=== PATIENT | male | born 1940 | race Caucasian/White ===

== ENCOUNTER → 2016-09-30 | Outpatient (CLI) | payer OTHER, MEDICARE | LOC: MMPC 09:00 | PROVIDERS: ATTEND Family Medicine | DX: K58.2 Mixed irritable bowel syndrome (principal); I10 Essential (primary) hypertension; E11.9 Type 2 diabetes mellitus without complications; E66.01 Morbid (severe) obesity due to excess calories; Z79.01 Long term (current) use of anticoagulants; Z95.1 Presence of aortocoronary bypass graft | CPT/HCPCS: 99214; G0463 ==

== ENCOUNTER → 2016-10-05 | Outpatient (CLI) | payer OTHER, MEDICARE | LOC: MMPC 11:11 | PROVIDERS: ATTEND Surgery | DX: K21.9 Gastro-esophageal reflux disease without esophagitis (principal); R19.4 Change in bowel habit; K92.1 Melena; Z86.010 Personal history of colon polyps; Z79.01 Long term (current) use of anticoagulants | CPT/HCPCS: 99203; G0463 ==

== ENCOUNTER 2016-10-13 07:47 | Day surgery (SDC) | payer OTHER, MEDICARE ==
[~2016-10-13 07:47] MED LIST: LIDOCAINE 2% VISCOUS(20 MG/1 ML) - 15 ML UD CUP PO ONE; fentaNYL Inj 100 MCG/2 ML VIAL ONE
[2016-10-13] MEDS ORDERED: LIDOCAINE W/ SODIUM BICARB 0.5 ML SYR ONE (07:56)
[2016-10-13] MEDS ORDERED: Lactated Ringers 1,000 ML PRIMARY IV ONE (07:56)
[2016-10-13 08:35] VITALS: RESP 16
--- NOTE | 2016-10-13 10:37 | GEN.OPNOTE ---
EGD / Colonoscopy Report Surgery Date: 10/13/16 Preoperative Diagnosis: GERD. Change in bowel habits. Personal history of colon polyps. Melanotic stools. Chronic anticoagulation. Postoperative Diagnosis: Same. Gastritis. Multiple colon polyps. Procedure: #1 esophagogastroduodenoscopy with biopsy. #2 complete colonoscopy with hot snare polypectomy 5. Surgeon: Arnoldo Sifuentes MD Anesthesia Provider: Mert Escobar CRNA Anesthesia Type: MAC Indications: See preoperative diagnosis. EGD Findings: Esophagus: [Normal] GE Junction : [Normal] Fundus : [Normal] Body : [Erythema and inflammation.] Prepyloric : [Streaky erythema.] Small Intestine : [Normal] A lubricated flexible upper endoscope was inserted and passed through the esophagus and stomach into the duodenum. The duodenum and duodenal bulb were unremarkable. The pyloric channel was patent. Both in the antrum and the body of the stomach there is some erythema and friability. Multiple biopsies were taken. Hemostasis was assured. The scope was withdrawn into the distal esophagus. There is minimal inflammation at the Z line. Biopsies were taken at and above the Z line. Hemostasis was assured. The scope was withdrawn through the remainder of a normal-appearing esophagus and brought through the hypopharynx under suction completing the procedure. Colonoscopy Findings: Prep : [Very good] Cecum : [Adenomatous polyp hot snare polypectomy performed] Ascending : [2 polyps. Hot snare polypectomy performed] Transverse : [Normal] Sigmoid : [Polyp. Hot snare polypectomy performed] Rectum : [Polyp. Hot snare polypectomy performed] Digital Rectal Exam : [No significant perianal pathology. Prostate of normal size and consistency for age. No nodules.] A lubricated flexible colonoscope was inserted and passed to the blind end of the cecum. There was a polyp in the cecum which was removed with a hot snare. There were 2 further polyps in the right colon which were removed with a hot snare. Base of all polyps was cauterized. Hemostasis was assured. One of the right colon polyps had a little arterial pumper at the base which was treated with further coagulation. The hepatic flexure, transverse colon, and splenic flexure as well as the descending colon were unremarkable. There was a polyp at 30 cm. Hot snare polypectomy was performed. The base was cauterized. There was another small polyp at 15 cm in the high rectum. Hot snare polypectomy was performed. The base was cauterized. The scope was withdrawn completing the procedure. Patient tolerated all aspects of the procedure well without complication. He was taken to outpatient surgery in stable condition. Follow-up will be with my office on an as-needed basis. We will call the biopsy results when available. I would recommend follow-up colonoscopy in 2 years time.
[2016-10-13 11:14] VITALS: TEMP 97.1
== END 2016-10-13 11:00 | disposition home or self-care (01) ==
LOC: SDSC 07:47
PROVIDERS: ATTEND Surgery
DX: K21.9 Gastro-esophageal reflux disease without esophagitis (principal); R19.4 Change in bowel habit; Z86.010 Personal history of colon polyps; K92.1 Melena; Z79.01 Long term (current) use of anticoagulants; K63.5 Polyp of colon
CPT/HCPCS: 43239; 45385; 85610; J2704; J3010; J7120